=== PATIENT | male | born 1950 | race Caucasian/White ===

== ENCOUNTER 2019-09-08 13:43 | Observation (INO) | payer OTHER ==
[~2019-09-08] VITALS: Ht 172.7 cm; Wt 83.9 kg
[2019-09-08 14:49] LABS: BASOPHILS % 0.5 % (0.0-1.0); EOSINOPHILS # (AUTO) 0.1 (0.0-0.4); EOSINOPHILS % 1.6 % (0.0-6.0); HEMATOCRIT 42.7 % (38.2-49.6); HEMOGLOBIN 14.6 g/dL (14.0-18.0); LYMPHOCYTES # (AUTO) 1.8 (1.0-3.2); LYMPHOCYTES % 24.2 % (18.0-39.1); MEAN CORPUSCULAR HEMOGLOBIN 33.5 pg (28-32); MEAN CORPUSCULAR HGB CONC 34.2 g/dL (31-35); MEAN CORPUSCULAR VOLUME 97.9 fL (81-99); MONOCYTES # (AUTO) 0.7 (0.2-0.8); MONOCYTES % 9.9 % (4.4-11.3); NEUTROPHILS # (AUTO) 4.7 (2.1-6.9); NEUTROPHILS % 62.9 % (38.7-80.0); PLATELET COUNT 157 x10e3/uL (140-360); RED BLOOD COUNT 4.36 x10e6/uL (4.3-5.7); RED CELL DISTRIBUTION WIDTH 12.2 % (11.7-14.4)
[2019-09-08] MEDS ORDERED: DILTIAZEM HCL 5 MG/ML 5 ML VIAL IV ONE (15:00)
[2019-09-08 15:06] LABS: ALANINE AMINOTRANSFERASE 24 IU/L (0-55); ALBUMIN 3.7 g/dL (3.5-5.0); ALBUMIN/GLOBULIN RATIO 1.3 (0.8-2.0); ALKALINE PHOSPHATASE 59 IU/L (40-150); ANION GAP 17.1 mmol/L (8-16); BLOOD UREA NITROGEN 17 mg/dL (7-26); BUN/CREATININE RATIO 17 (6-25); CARBON DIOXIDE 19 mmol/L (22-29); CHLORIDE 106 mmol/L (98-107); CREATINE KINASE 54 IU/L (30-200); CREATININE, SERUM 1.02 mg/dL (0.72-1.25); EST GLOMERULAR FILTRATION RATE > 60 ML/MIN (60-); GLUCOSE 138 mg/dL (74-118); POTASSIUM 4.1 mmol/L (3.5-5.1); SODIUM 138 mmol/L (136-145)
--- NOTE | 2019-09-08 15:27 | Diagnostic Imaging Report ---
EXAMINATION: CHEST SINGLE (PORTABLE) INDICATION: Tachycardia COMPARISON: None FINDINGS: LINES/TUBES:EKG leads overlie the chest. LUNGS:The lungs are well-inflated. No focal consolidation or pulmonary edema. PLEURA:No pleural effusion or pneumothorax. MEDIASTINUM:The cardiomediastinal silhouette appears normal in size and shape. Atherosclerotic calcifications of the thoracic aorta. BONES/SOFT TISSUES:No acute osseous injury. ABDOMEN:No free air under the diaphragm. IMPRESSION: No focal pneumonia or pulmonary edema. Signed by: Elvis Hudson MD on 09/08/2019 3:24 PM
[2019-09-08] MEDS ORDERED: DILTIAZEM HCL 5 MG/ML 5 ML VIAL IV STA (15:52)
[2019-09-08] MEDS ORDERED: DIGOXIN INJ 0.25 MG/ML 2 ML AMP IV ONE (16:00)
[2019-09-08] MEDS ORDERED: DILTIAZEM HCL 125 ML IV STA (16:25)
[2019-09-08] MEDS ORDERED: ONDANSETRON HCL INJ 2MG/ML 2ML 2 MG/ML VIAL IV PRN (16:30)
[2019-09-08] MEDS ORDERED: MORPHINE SULFATE 2 MG/ML SYR 1ML IV PRN (16:30)
[2019-09-08] MEDS ORDERED: MORPHINE SULFATE INJ 4 MG/ML INJ 1ML IV PRN (16:45)
--- OUTSIDE RECORDS SUMMARY | 2019-09-08 16:47 | XMS REPORT ---
Author Author [facility] Address Unknown Phone Unavailable Care Team Providers Care Collection Teller Name Role Phone DAMIR YULISSA Unavailable Unavailable Problems This patient has no known problems. Allergies, Adverse Reactions, Alerts This patient has no known allergies or adverse reactions. Medications This patient has no known medications. Results Test Description Test Time Test Comments Text Results Atomic Results Result Comments CHEST SINGLE (PORTABLE) 2019-09-08 15:23:00 [place] [address] Patient Name: YANG BENNETT MR #: [id number] : 1950 Age/Sex: 69/M Req #: [id number] Adm Physician: Ordered by: YULISSA REICH DO Report #: [id number] Location: ER Room/Bed: Procedure: [id number] DX/CHEST SINGLE (PORTABLE) Exam Date: Exam Time: REPORT STATUS: Signed EXAMINATION: CHEST SINGLE (PORTABLE) INDICATION: Ta chycardia COMPARISON: None FINDINGS: LINES/TUBES:EKG leads overlie the chest. LUNGS:The lungs are well-inflated. No focal consolidation or pulmonary edema. PLEURA:No pleural effusion or pneumothorax. MEDIASTINUM:The cardiomediastinal silhouette appears normal in size and shape. Atherosclerotic calcifications of the thoracic aorta. BONES/SOFT TISSUES:No acute osseous injury. ABDOMEN:No free air under the diaphragm. IMPRESSION: No focal pneumonia or pulmonary edema. Signed by: Tiffany Hudson MD on 09/08/2019 3:24 PM Dictated By: TIFFANY HUDSON MD [id number] Transcribed By: POLA on 09/08/19 1524 COPY TO: YULISSA REICH DO
[2019-09-08] MEDS ORDERED: DILTIAZEM HCL IV 5MG/ML 25 ML VIAL ONE (17:15)
[2019-09-08] MEDS ORDERED: SODIUM CHLORIDE 0.9% 100 ML ONE (17:15)
[2019-09-08] MEDS: SODIUM CHLORIDE 0.9% 1000ML 1,000 ML IV SCH (17:32)
--- NOTE | 2019-09-08 19:17 | NUR ---
REPORT TO SHEILA ANGEL
[2019-09-08 19:50] VITALS: BP 162/90
[2019-09-08] MEDS ORDERED: ALLOPURINOL300 MG PO (20:05)
[2019-09-08] MEDS ORDERED: LISINOPRIL10 MG PO (20:10)
[2019-09-08] MEDS ORDERED: LEVOTHYROXINE112 MCG PO (20:10)
[2019-09-08] MEDS ORDERED: CLONAZEPAM1 MG PO (20:10)
[2019-09-08] MEDS ORDERED: BUSPIRONE HCL5 MG PO (20:10)
[2019-09-08] MEDS ORDERED: METFORMIN HCL850 MG PO (20:10)
[2019-09-08] MEDS ORDERED: LIPITOR20 MG (20:10)
[2019-09-08] MEDS ORDERED: VENTOLIN HFA18 GM PO (20:12)
[2019-09-08] MEDS ORDERED: PIOGLITAZONE HC45 MG PO (20:12)
[2019-09-08] MEDS ORDERED: TRAZODONE HCL50 MG PO (20:12)
[2019-09-08] MEDS ORDERED: XARELTO20 MG (20:12)
[2019-09-08] MEDS ORDERED: ALBUTEROL SULFATE HFA 8GM INHALATION AEROSOL INH PRN (20:30)
[2019-09-08] MEDS ORDERED: ACETAMINOPHEN 325 MG TAB PO PRN (20:30)
[2019-09-08] MEDS ORDERED: TRAZODONE HCL 50 MG TAB PO PRN (20:30)
[2019-09-08] MEDS ORDERED: ATORVASTATIN 10 MG TAB PO SCH (21:00)
[2019-09-08] MEDS ORDERED: LISINOPRIL 10 MG TAB PO SCH (21:00)
[2019-09-08 21:22] VITALS: BP 162/90
[2019-09-09] VITALS: BP 139/77
[2019-09-09] MEDS: SODIUM CHLORIDE 0.9% 1000ML 1,000 ML IV SCH ×2 (02:33→08:08)
[2019-09-09 04:00] VITALS: BP 132/77
[2019-09-09 05:46] LABS: CREATINE KINASE 41 IU/L (30-200)
[2019-09-09] MEDS ORDERED: LEVOTHYROXINE SODIUM 125 MCG TAB PO SCH (06:00)
[2019-09-09] MEDS ORDERED: PIOGLITAZONE HCL 15 MG TAB PO SCH (07:30)
[2019-09-09 07:33] VITALS: BP 155/95
[2019-09-09] MEDS ORDERED: METFORMIN HCL 500 MG TAB CR PO SCH (08:00)
[2019-09-09] MEDS ORDERED: ONDANSETRON HCL 4 MG ORAL DISINTEGRATING TAB PO PRN (08:15)
[2019-09-09 08:23] VITALS: BP 155/95
[2019-09-09] MEDS ORDERED: RIVAROXABAN 20 MG TABLET PO SCH (09:00)
[2019-09-09] MEDS ORDERED: BUSPIRONE HCL 5 MG TAB PO SCH ×2 (09:00→17:00)
[2019-09-09] MEDS ORDERED: CLONAZEPAM 1 MG TAB PO SCH (09:00)
[2019-09-09] MEDS ORDERED: ALLOPURINOL 300 MG TAB PO SCH (09:00)
[2019-09-09] MEDS ORDERED: DILTIAZEM HCL ER 120 MG CAP PO SCH (09:15)
--- NOTE | 2019-09-09 09:22 | NUR ---
STATUS CHANGED TO OBSERVATION BY DR REICH NOT NEW ONSET OF A FIB; HAS HX OF A FIB TUCKER SIGNED AND ON CHART COPY TO PT IN [facility]
[2019-09-09 11:25] VITALS: BP 118/92
--- NOTE | 2019-09-09 11:28 | History and Physical ---
PRIMARY CARE PHYSICIAN: DRIER BELT CONVEYOR: Jordan Parra MD CHIEF COMPLAINT: Rapid heart rate, atrial fibrillation. HISTORY OF PRESENT ILLNESS: This is a 69-year-old male with atrial fibrillation by history. The patient is on Xarelto. His heart rate usually is under control, but when he presented to the hospital, his heart rate was elevated. The heart rate was in the 120 to 110. The patient was in atrial fibrillation, palpitation. The patient was placed on Cardizem drip and his heart rate now is 89. The patient is otherwise stable. No chest pain. No shortness of breath. The patient is comfortable. Labs otherwise unremarkable. PAST MEDICAL HISTORY: Diabetes type 2, hypertension, dyslipidemia, hypothyroidism, atrial fibrillation, rate controlled. Anticoagulant therapy with Xarelto. Psoriasis, cataract. PAST SURGICAL HISTORY: Appendectomy. SOCIAL HISTORY: The patient does not smoke or use alcohol. No regular drug use. ALLERGIES: ASPIRIN. HOME MEDICATIONS: List is reviewed. REVIEW OF SYSTEMS: Palpitation resolved. PHYSICAL EXAMINATION: VITAL SIGNS: Temperature is 98, blood pressure 155/95, pulse rate 89, respirations 18. GENERAL: The patient is not in acute distress. HEENT: Normocephalic and atraumatic. Pupils reactive, anicteric. NECK: Supple grossly. PULMONARY: Clear. CARDIOVASCULAR: Rate controlled atrial fibrillation. No gallop or rub. ABDOMEN: Soft and unremarkable. EXTREMITIES: No cyanosis or edema. NEUROLOGIC: No focal deficit. LABORATORY DATA: Sodium is 138, potassium 4.1, chloride 106, bicarb 19, BUN 17, creatinine 1.0, glucose 138. WBC 7.4, hemoglobin 15, hematocrit 43, platelet 157. Liver enzyme unremarkable. Chest x-ray is negative. IMPRESSION: 1. Paroxysmal atrial fibrillation with rapid rate. 2. Baseline multiple medical problem. PLAN: We will start the patient on Cardizem CD 240 mg once a day. Started now. We will discontinue the Cardizem drip. If the patient's heart rate is under control, the patient should be able to go home today. MD BERT Madrigal/KAREEN /[id number]
--- NOTE | 2019-09-09 13:14 | Consultation ---
DATE OF CONSULTATION: Cardiology Consultation CHIEF COMPLAINT: Atrial fibrillation with an RVR. HISTORY OF PRESENT ILLNESS: Mr. Bentley Solano is a 69-year-old male with primary history of hypertension, atrial fibrillation, on Xarelto at home; diabetes, hypothyroidism, gout, arthritis, and asthma; admitted on 09/08/2019, complaining of fast heart rate. The patient was scheduled for cataract surgery yesterday, when he was having a heart rate of 120s to 160s. The patient denies any accompanying symptoms. No chest pain. No dizziness. The patient reports that he was diagnosed of atrial fib for five years now. CURRENT MEDICATIONS: He is taking rivaroxaban 20 mg daily, atorvastatin 10 mg, levothyroxine, lisinopril, metformin, buspirone, pioglitazone, clonazepam, and trazodone. PRIMARY HISTORY: Hypertension, atrial fibrillation, hypothyroidism, gout, arthritis, and asthma. SURGICAL HISTORY: No surgeries. REVIEW OF SYSTEMS: CONSTITUTIONAL: Energy level is generally good. HEENT: No headaches. Eyes; he has cataracts. Ears; there is mild hearing loss. RESPIRATORY: History of asthma, but no wheezing. No coughing. No history of pulmonary emboli. CARDIAC: History of hypertension and atrial fibrillation, on Xarelto. VASCULAR: No history of claudication or gangrene or DVT or aneurysm. GI: Negative bleeding. Negative gastritis. : Negative dysuria. Negative hematuria. NEUROMUSCULAR: Positive gout, arthritis. There is no history of seizures. No history of stroke. No history of syncope or memory changes. HEMATOLOGICAL: No known blood or clotting disorders. ENDOCRINE: He has diabetes and thyroid disease. DERMATOLOGICAL: He has psoriasis, rashes, scattered bilateral lower extremities. SOCIAL HISTORY: The patient does not smoke or drink alcohol. Occupation, he is a pete. FAMILY HISTORY: Mom of breast cancer. Dad of asbestosis, dementia, and enlarged heart. PHYSICAL EXAMINATION: VITAL SIGNS: Blood pressure is 155/95, pulse is 89, temperature is 98.4, respirations 16, and SpO2 is 98% on room air. GENERAL: He is a well-developed, no acute respiratory distress. HEENT: Normocephalic. Sclerae are nonicteric. Range of motion is normal. Pupils are equally round and reactive to light and accommodation. NECK: Negative or no JVD. Thyroid is not palpable. No masses. NODES: No adenopathy. CHEST: Lungs are clear to auscultation bilaterally. EXTREMITIES: No edema. Pulses are palpable. CARDIOVASCULAR: Rate is irregular. No murmurs. ABDOMEN: Soft, nondistended, nontender to palpation. Positive bowel sounds. NEUROLOGICAL: He is awake, alert, and oriented x4. LABORATORY: Sodium is 138, potassium is 4.1, chloride is 106, CO2 of 19, BUN 17, creatinine is 1.02. Glucose 138. WBC 7.4, hemoglobin 14.6, hematocrit 42.7, and platelets 157, total bilirubin 0.4, AST 19, ALKP 59, ALT 24. IMPRESSION: 1. Atrial fibrillation with rapid ventricular response. 2. Hypertension. PLAN: 1. Continue rivaroxaban 20 mg daily, lisinopril 10 mg daily, levothyroxine 125 mcg daily. 2. Follow serial physical exams, EKGs, and labs. 3. Obtain echocardiogram to assess heart function and LVEF. 4. Continue ALENA inhibitor therapy and monitor blood pressure. Thank you for the consultation. We will continue to follow. In case the patient gets to go home today, the patient needs to follow up with hr business partner, Dr. Parra, at his office. Dictated by Nancy Rausch NP MD ROBB Candelaria/KAREEN /[id number]
--- NOTE | 2019-09-09 13:29 | NUR ---
CALLED DR. ABRIL REICH MADE AWARE PATIENT'S HEART RATE IN UPPER 90'S TO 112, AND PATIENT HAD BEEN SEEN BY CARDIOLOGY DR. SEBASTIAN NOLAN, PER CARDIOLOGY OK FOR PATIENT TO D/C HOME WITH LOPRESSOR 25MG RECEIVED ORDERS FROM DR. REICH TO DISCHARGE PATIENT HOME AND TO D/C THE CARDIZEM PRESCRIPTION, INSTRUCT PATIENT TO FOLLOW UP WITH CARDIOLOGY DISCUSSED WITH SEBASTIAN NOLAN.
--- NOTE | 2019-09-09 14:40 | NUR ---
PATIENT DISCHARGED HOME VERBALIZED UNDERSTANDING OF D/C INSTRUCTIONS. ESCORTED PATIENT IN WHEEL CHAIR TO FRONT OF HOSPITAL.
[2019-09-09] MEDS ORDERED: METFORMIN HCL 850 MG TAB PO SCH (16:30)
[2019-09-09] MEDS ORDERED: METOPROLOL TARTRATE 25 MG TAB PO SCH (17:00)
[2019-09-09] MEDS ORDERED: RIVAROXABAN 15 MG TABLET PO SCH (17:00)
[2019-09-09] MEDS ORDERED: TRAZODONE HCL 50 MG TAB PO SCH (21:00)
[2019-09-10] MEDS ORDERED: PIOGLITAZONE HCL 15 MG TAB PO SCH (09:00)
[2019-09-10] MEDS ORDERED: LEVOTHYROXINE SODIUM 112 MCG TAB PO SCH (09:00)
[2019-09-10] MEDS ORDERED: ALLOPURINOL 300 MG TAB PO SCH (09:00)
[2019-09-10] MEDS ORDERED: CLONAZEPAM 1 MG TAB PO SCH (09:00)
== END 2019-09-09 14:10 | disposition home or self-care (01) ==
LOC: ER 13:43 → ERHOLD 16:44 → INTOOBSV 16:44 → IMCU 19:34
PROVIDERS: ADMIT Internal Medicine; ATTEND Internal Medicine
DX: I48.0 Paroxysmal atrial fibrillation (principal); E11.9 Type 2 diabetes mellitus without complications; I10 Essential (primary) hypertension; E78.5 Hyperlipidemia, unspecified; E03.9 Hypothyroidism, unspecified; Z79.01 Long term (current) use of anticoagulants; Z80.3 Family history of malignant neoplasm of breast; Z84.89 Family history of other specified conditions; H26.9 Unspecified cataract; Z79.84 Long term (current) use of oral hypoglycemic drugs
CPT/HCPCS: 36415 ×2; 71045; 80053; 82550 ×2; 82553 ×2; 82948 ×2; 83880; 84443; 84484 ×2; 85025; 93005; 93306; 99284; G0378 ×2; J1160; J7030; J7050